=== PATIENT | female | born 2000 | race Two or more races ===

== ENCOUNTER 2024-08-03 09:13 | Outpatient (RCR) | payer MEDICAID, SELFPAY ==
--- NOTE | 2024-08-03 09:53 | CTCFLWUP_ITS ---
Jeferson Peck [facility] [address] [place], [place] [address] FOLLOW-UP NOTE Date: 08/03/2024 MR#: [id number] Name: PRUDENCIO GREENBERG : 2000 Dx: C73 Malignant neoplasm of thyroid gland Stage I papillary thyroid pT1a thyroidectomy 3pN1 Underwent 32.2 mCi of radioiodine 02/09/2023 with total body iodine scan 02/16/2023 showing no mets. Had COVID infection last summer now fully recovered. Ultrasound 12/09/2023 showed no thyroid tissue n o mass in the thyroid bed. Most recent labs 07/11/2024 thyroglobulin antibody less than 1.0 CBC CMP including calcium unremarkab le. Thyroglobulin was not performed even though ordered. TSH 3.9 T4 1.41 04/27/2024. Doing well with no problems. Lungs clear. No growth in neck. Assessment. Stage I papillary thyroid carcinoma. No sign recurrence. Will check thyroglobulin antibody thyroglobulin and thyroid function before next visit in 3 months. Electronically signed by: Rei Villegas M.D. 08/03/2024 9:51 AM
== END 2024-08-11 23:59 | disposition home or self-care (01) ==
LOC: SCTC 09:13
PROVIDERS: Referring Provider Radiology Therapeutic Radiology; Visit Provider Radiology Therapeutic Radiology
DX: Z08 Encounter for follow-up examination after completed treatment for malignant neoplasm (principal); Z85.850 Personal history of malignant neoplasm of thyroid; E89.0 Postprocedural hypothyroidism; Z92.3 Personal history of irradiation
CPT/HCPCS: 99213; G0463

== ENCOUNTER 2024-11-01 13:01 | Outpatient (RCR) | payer MEDICAID, SELFPAY ==
--- NOTE | 2024-11-01 13:31 | CTCFLWUP_ITS ---
Jeferson Peck [facility] [address] [place], [place] [address] FOLLOW-UP NOTE Date: 11/01/2024 MR#: [id number] Name: PRUDENCIO GREENBERG : 2000 Dx: C73 Malignant neoplasm of thyroid gland Identification. Stage I papillary thyroid carcinoma [id number] total thyroidectomy 11/03/2022 Tumor size 0.6 cm and right lobe with 1 of 2 lymph nodes positive Underwent 32.2 mCi of radioiodine 12/10/2022 with total body iodine scan 02/16/2023 showing no mets. Recovered from COVID infection last summer now fully recovered. Ultrasound 12/09/2023 no growth or soft tissue mass. Most recent labs euthyroid with TSH 3.2 and T4 at 1.15 on 137 mcg of Synthroid. Thyroglobulin 0.1 thyroglobulin antibody less than 1.0. 10/20/2024. A#1. Patient doing well with stage I papillary thyroid carcinoma surgery and postop radioiodine 2 years ago. Euthyroid on 137 mcg of Synthroid with low thyroglobulin thyroid antibody with negative ultrasound 12/09/2023. A#2. Being low risk, stage I patient, I believe can be followed by her primary care provider. A#. Recommend every 3 to 6 months of free T4 TSH making sure that it stays at euthyroid level Thyroglobulin thyroglobulin antibody every 3 to 6 months and making sure that it stays low. Ultrasound once a year for the next 3 more years A#4. Can be referred back for any Abnormalities. C:c: [facility] fax [phone] Electronically signed by: Rei Villegas M.D. 11/01/2024 1:29 PM
== END 2024-11-08 23:59 | disposition home or self-care (01) ==
LOC: SCTC 13:01
PROVIDERS: Referring Provider Radiology Therapeutic Radiology; Visit Provider Radiology Therapeutic Radiology
DX: C73 Malignant neoplasm of thyroid gland (principal); E89.0 Postprocedural hypothyroidism; Z79.890 Hormone replacement therapy; Z92.3 Personal history of irradiation
CPT/HCPCS: 99212; G0463